=== PATIENT | male | born 1965 ===

== ENCOUNTER 2017-07-06 12:24 | Day surgery (SDC) | payer BC ==
[~2017-07-06] VITALS: Ht 190.5 cm; Wt 109.3 kg
[~2017-07-06 12:24] MED LIST: ASCO500; CYCL10; DIAZ2 PO; FISH OIL 1,0001 EAC1; Hair, Skin & N1 EACH; NAPR500 PO; OXYACE5T PO; TOCO1000; TRAZ100
== END 2017-07-06 14:15 | disposition home or self-care (01) ==
LOC: ORSCSDS 12:24
PROVIDERS: Surgery
PROC: 0DJD8ZZ Inspection of Lower Intestinal Tract, Via Natural or Artificial Opening Endoscopic (ICD-10-PCS; principal; 2017-07-06 13:30)
DX: Z12.11 Encounter for screening for malignant neoplasm of colon (principal); K21.9 Gastro-esophageal reflux disease without esophagitis; E78.5 Hyperlipidemia, unspecified; Z79.899 Other long term (current) drug therapy

== ENCOUNTER 2022-10-13 06:53 | Day surgery (SDC) | payer BC ==
[2022-10-13] VITALS (11 sets, daily range): BP systolic 98–117; BP diastolic 65–87
[~2022-10-13] VITALS: Ht 190.5 cm; Wt 107.0 kg
[~2022-10-13 06:53] MED LIST changes: +METO25ER PO; +Prilosec Otc20 MG PO
[2022-10-13] MEDS ORDERED: ATOR40TA PO (07:29)
[2022-10-13] MEDS ORDERED: Aspir 8181 MG PO (07:29)
--- NOTE | 2022-10-13 09:51 | NUR ---
PATIENT ARRIVES BACK FROM THE [facility] VIA RECLINER, SBAR RECEIVED FROM OBDULIA TRAN, PATIENT PLACED ON THE MONITOR ADN CALL LIGHT IN REACH. VVS. NO CHEST PAIN NOTED. TR BAND IN PLACE TO THE RIGHT RADIAL WITH 10 ML OF AIR IN THE BAND. BREAKFAST TRAY SERVED AND CALLING ON CELL PHONE.
[2022-10-13] MEDS ORDERED: CLOP75 PO (10:25)
--- NOTE | 2022-10-13 12:05 | NUR ---
TR BAND DEFLATION INITATED PER PROTOCOL. NO HEMATOMA AND NO BLEEDING AT THIS TIME.
--- NOTE | 2022-10-13 13:01 | NUR ---
PT. TR BAND REMOVED, DRESSING PLACED. IV REMOVED, CATHETER INTACT. NO SWELLING OR HEMATOMA TO SITE. PT. ABLE TO GET SELF DRESSED W/O DIFFICULTY. DISCHARGE INSTRUCTIONS REVIEWED, NO FURTHER QUESTIONS FROM PATIENT. PT. TO GIVE PT RIDE HOME. PT. TAKEN VIA WHEELCHAIR TO EXIT. ALL BELONGINGS TAKEN WITH PT. VSS UPON DEPARTURE.
== END 2022-10-13 13:59 | disposition home or self-care (01) ==
LOC: MHTC 06:53
DX: I25.118 Atherosclerotic heart disease of native coronary artery with other forms of angina pectoris (principal); E78.5 Hyperlipidemia, unspecified
CPT/HCPCS: 76937; 85347; 93458; 99152; 99153; A9270; C1725; C1769; C1874; C1887; C1894; C9600; J1644; J2250; J3010; J3246; J7030; J7050; Q9967